=== PATIENT | male | born 1945 | race Caucasian/White ===

== ENCOUNTER 2016-05-15 10:08 | Emergency (ER) | payer MEDICARE, OTHER ==
[~2016-05-15] VITALS: Ht 170.2 cm; Wt 63.6 kg
[~2016-05-15 10:08] MED LIST: COSOPT EYE DROPS5 ML OP; NO HOME MEDICATIONS; PROSCAR 5MG5 MG PO; TRIAMTERENE/HCTZ; UNABLE; ZESTRIL 5MG5 MG PO; ZOLOFT 50MG50 MG PO
[2016-05-15 10:13] VITALS: TEMP 97.3
[2016-05-15] MEDS ORDERED: ZOCOR 40MG40 MG PO (10:19)
[2016-05-15] MEDS ORDERED: VITAMIN C500 MG PO (10:20)
[2016-05-15] MEDS ORDERED: ALPHAGAN P 15 M15 ML OU (10:20)
[2016-05-15] MEDS ORDERED: XALATAN EYE DROPS OU (10:20)
[2016-05-15] MEDS ORDERED: MASON NATURAL2000 IU PO (10:21)
[2016-05-15 11:14] LABS: BASO % 0.2 % (0.0-2.0); EOS # 0.2 (0.0-0.7); EOS % 2.4 % (0-4.0); GRAN # 4.7 (1.4-6.5); GRAN % 75.3 % (42.2-75.2); HEMOGLOBIN 12.6 g/dl (13.5-18.0); LYMPH # 1.1 (1.2-3.4); LYMPH % 16.7 % (20.0-51.0); MEAN CELL VOLUME 80 fl (80.0-100.0); MEAN CORPUSCULAR HEMOGLOBIN 28 pg (27.0-31.0); MEAN CORPUSCULAR HGB CONC 35 g/dl (33.0-37.0); MEAN PLATELET VOLUME 9.6 fl (7.4-10.4); MONO # 0.3 (0.1-0.6); MONO % 4.9 % (1.7-9.3); PLATELET COUNT 219 K/mm3 (130-400); RED BLOOD COUNT 4.54 M/mm3 (4.20-5.60); WHITE BLOOD COUNT 6.3 K/mm3 (4.8-10.8)
[2016-05-15 11:15] LABS: HEMATOCRIT 36.3 % (42.0-52.0)
[2016-05-15 11:32] LABS: ADJUSTED CALCIUM 9.3 mg/dL (8.4-10.2); ALANINE AMINOTRANSFERASE 32 U/L (21-72); ALKALINE PHOSPHATASE 59 U/L (50-136); ANION GAP 9 mmol/L (7-16); BLOOD UREA NITROGEN 16 mg/dL (9-20); CALCIUM 9.3 mg/dL (8.4-10.2); CARBON DIOXIDE 27 mmol/L (22-30); CHLORIDE 99 mmol/L (98-107); CREATININE, serum 1.06 mg/dL (0.66-1.25); GLUCOSE 110 mg/dL (74-106); POTASSIUM 4.5 mmol/L (3.4-5.0); SODIUM 136 mmol/L (137-145)
[2016-05-15 11:33] LABS: C-REACTIVE PROTEIN < 0.5 mg/dL (0.0-0.9)
[2016-05-15 12:27] VITALS: BP 108/67; PULSE 43
== END 2016-05-15 12:28 | disposition home or self-care (01) ==
LOC: COL.ER 10:08
PROVIDERS: Family Medicine
DX: E86.0 Dehydration (principal); I95.1 Orthostatic hypotension; I69.959 Hemiplegia and hemiparesis following unspecified cerebrovascular disease affecting unspecified side; I69.998 Other sequelae following unspecified cerebrovascular disease; H53.9 Unspecified visual disturbance
CPT/HCPCS: J7030

== ENCOUNTER 2020-11-25 11:33 | Day surgery (SDC) | payer MEDICARE, OTHER ==
[2020-11-25] VITALS (13 sets, daily range): BP systolic 103–196; BP diastolic 64–99; PULSE 46–94; TEMP 94.1–98.5
[~2020-11-25] VITALS: Ht 170.2 cm; Wt 83.1 kg
[~2020-11-25 11:33] MED LIST changes: +ALPHAGAN P 15 M15 ML OU; +MASON NATURAL2000 IU PO; +VITAMIN C500 MG PO; +XALATAN EYE DROPS OU; +ZOCOR 40MG40 MG PO
[2020-11-25] MEDS ORDERED: PRINIVIL10 MG PO (13:39)
[2020-11-25] MEDS ORDERED: FLOMAX 0.40.4 MG/CAP PO (13:40)
[2020-11-25] MEDS ORDERED: MELATONIN5 M1 PO ×2 (13:41)
[2020-11-25] MEDS ORDERED: OCUVITE1 TA1 PO (13:42)
[2020-11-25] MEDS ORDERED: PREVAGEN PO (13:42)
[2020-11-25] MEDS ORDERED: LACTAID3000 UNIT PO (13:44)
--- NOTE | 2020-11-25 16:43 | NUR ---
Pt. admitted to room 326. Pt. alert, oriented to self only. Pt. tearful when asked if he knows where he is because he reports he feels lost. Pt.'s temp is low at this time, see vital signs. K-pad placed on pt.'s body. Pt.'s son Sanjay at bedside.
--- NOTE | 2020-11-25 17:45 | NUR ---
Pt.'s temperature now WNL. Pt.'s urinary output is pink in color. Continuous bladder irrigation remains in place. Pt. was able to drink two cups of liquid broth and tolerated well. Pt. denies pain and reports he still feels numbness in his feet from the spinal anesthesia. Pt. is able to move his feet on the bed and can feel this flex o writer operator touching his ankles. New IVF hanging per order.
--- NOTE | 2020-11-25 20:00 | NUR ---
PATIENT IS ALERT TO SELF BUT CONFUSED ABOUT DAY AND PLACE. PATIENT IS SITTING UP IN BED. PATIENT HAS CBI WITH RED AND CLEAR OUTPUT. PATIENT HAS IV TO LEFT HAND. PATIENT IS LEGALLY BLIND. PATIENT HAS BP OF 196/96. LAKI CALLED AND MEDS GIVEN PER ORDERS. NO FURTHER NEEDS AT THIS TIME. CALL LIGHT WITHIN REACH. HEAD TO TOE ASSESSMENT COMPLETE.
--- NOTE | 2020-11-25 21:00 | NUR ---
PATIENT'S BLOOD PRESSURE IS BACK DOWN TO 164/91. THIS IS IN NORMAL RANGE FOR PATIENT. NO FURTHER NEEDS AT THIS TIME.
[2020-11-26 03:43] VITALS: BP 144/66; PULSE 83; TEMP 98.4
--- NOTE | 2020-11-26 06:24 | NUR ---
PATIENT DID WELL THROUGHOUT NIGHT. SLEPT ON AND OFF. PATIENT CBI OUTPUT IS PINKISH-REDDISH AND CLEAR. PATEITN DENIES PAIN OR FURTHER NEEDS AT THIS TIME. WILL REPORT TO DAY SHIFT.
[2020-11-26 07:31] VITALS: BP 144/87; PULSE 71; TEMP 97.6
--- NOTE | 2020-11-26 08:00 | NUR ---
PATIENT IS ORIENTED TO PERSON BUT IS FREQUENTLY FORGETFUL & CONFUSED. PATIENT HAS HX OF DEMENTIA, IS LEGALLY BLIND, AND LIVES AT HOME WITH SON. VSS. DENIES PAIN. AT BEDSIDE. P&P PER ORDERS. INFUSED 200CC OF CBI FLUID AND DC'D HASTINGS. URINAL AT BEDSIDE AND PATIENT GIVEN 6 CUP ROUTINE EDUCATION. NO C/O N/V. BREAKFAST TRAY AT BEDSIDE. AM MEDS GIVEN. LEFT HAND IV TO INT. HEAD TO TOE ASSESSMENT COMPLETE. CALL LIGHT IN REACH.
--- NOTE | 2020-11-26 11:30 | NUR ---
PATIENT'S FIRST VOID WAS ACCIDENTLY FLUSHED BY SON BUT WAS SEEN BY BOILER ROOM OPERATOR. WILL MONITOR.
[2020-11-26 12:44] VITALS: BP 137/68; PULSE 68; TEMP 97.6
--- NOTE | 2020-11-26 13:00 | NUR ---
SECOND VOID, PATIENT VOIDED IN URINAL BUT SPILLED APPROX 150CC OF RED TINGED URINE ON THE FLOOR. URINE OBSERVED BY STAFF. 6 CUP STILL IN PROCESS
--- NOTE | 2020-11-26 14:00 | NUR ---
PATIENT WAS ABLE TO VOID A THRID TIME AND WAS CAPTURED & PLACED IN 6 CUP. URINE IS DARK RED, NO CLOTS
[2020-11-26 15:25] VITALS: BP 153/73; PULSE 58; TEMP 97.9
--- NOTE | 2020-11-26 16:50 | NUR ---
PATIENT DISCHARGING HOME VIA WC TO PERSONAL VEHICLE WITH SON. OKAYED DISCHARGE, SEE ORDERS. GAVE DISCHARGE INSTRUCTIONS, SON CONFIRMS DISCHARGE MEDS WERE ALREADY SENT TO PHARMACY. ANSWERED QUESTIONS/CONCERNS. DC'D LEFT HAND IV, COVERED SITE WITH GAUZE & COBAN. PATIENT IS DRESSED, PACKED AND ESCORTED OUT.
== END 2020-11-26 16:50 | disposition home or self-care (01) ==
LOC: SDCO 11:33 → SURG 17:05 → SDCO 11-26 11:25 → SURG 11-26 11:25 → SDCO 11-26 16:50
DX: N40.1 Benign prostatic hyperplasia with lower urinary tract symptoms (principal); N42.31 Prostatic intraepithelial neoplasia; R39.12 Poor urinary stream; R35.1 Nocturia; R39.11 Hesitancy of micturition; N13.8 Other obstructive and reflux uropathy; I10 Essential (primary) hypertension; H40.9 Unspecified glaucoma; Z20.822 Contact with and (suspected) exposure to COVID-19; Z79.899 Other long term (current) drug therapy
CPT/HCPCS: OP; J0360; J0690; J1940; J2250; J2704; J3480; J7120

== ENCOUNTER 2021-03-13 07:22 | Emergency (ER) | payer MEDICARE, OTHER ==
[~2021-03-13] VITALS: Ht 167.6 cm; Wt 77.3 kg
[~2021-03-13 07:22] MED LIST changes: +FLOMAX 0.40.4 MG/CAP PO; +LACTAID3000 UNIT PO; +MELATONIN5 M1 PO; +OCUVITE1 TA1 PO; +PREVAGEN PO; +PRINIVIL10 MG PO
[2021-03-13 07:23] VITALS: TEMP 97.3
[2021-03-13 09:31] VITALS: BP 161/93; PULSE 65
[2021-03-14] MEDS ORDERED: ASPIRIN 81M81 MG/TA2 PO (14:24)
[2021-03-14] MEDS ORDERED: ARICEPT10 MG PO (14:25)
== END 2021-03-13 09:50 | disposition home or self-care (01) ==
LOC: COL.ER 07:22
DX: S70.01XA Contusion of right hip, initial encounter (principal); F03.90 Unspecified dementia, unspecified severity, without behavioral disturbance, psychotic disturbance, mood disturbance, and anxiety; W19.XXXA Unspecified fall, initial encounter; Y92.009 Unspecified place in unspecified non-institutional (private) residence as the place of occurrence of the external cause

== ENCOUNTER 2021-03-14 08:32 | Inpatient (IN) | payer MEDICARE, OTHER ==
[~2021-03-14] VITALS: Ht 170.2 cm; Wt 79.9 kg
[2021-03-14 08:58] LABS: HEMATOCRIT 44.1 % (42.0-52.0); HEMOGLOBIN 15.3 g/dl (13.5-18.0); MEAN CELL VOLUME 80 fl (80.0-100.0); MEAN CORPUSCULAR HEMOGLOBIN 28 pg (27-31); MEAN CORPUSCULAR HGB CONC 35 g/dl (33.0-37.0); MEAN PLATELET VOLUME 9.6 fl (7.4-10.4); PLATELET COUNT 219 K/mm3 (130-400); RED BLOOD COUNT 5.49 M/mm3 (4.20-5.60); REDCELL DISTRIBUTION WIDTH-CV 13.4 % (11.5-14.5)
[2021-03-14 09:24] LABS: ALANINE AMINOTRANSFERASE 34 U/L (0-55); ALBUMIN 3.8 gm/dL (3.4-4.8); ALKALINE PHOSPHATASE 77 U/L (40-150); ANION GAP 17 mmol/L (7-16); AST,SGOT 33 U/L (5-34); BILIRUBIN,TOTAL 1.2 mg/dL (0.2-1.2); BLOOD UREA NITROGEN 14 mg/dL (8-26); C-REACTIVE PROTEIN 6.43 mg/dL (0.00-0.50); CARBON DIOXIDE 15 mmol/L (23-31); CHLORIDE 109 mmol/L (98-107); CREATININE, serum 1.14 mg/dL (0.72-1.25); GLUCOSE 145 mg/dL (70-99); LIPASE < 10 U/L (8-78); POTASSIUM 4.1 mmol/L (3.5-4.5); SODIUM 141 mmol/L (136-145); TOTAL PROTEIN 7.3 gm/dL (6.2-8.1)
[2021-03-14 09:53] LABS: LYMPHOCYTE 6 % (20.0-51.0); NEUTROPHILS 93 % (42.0-75.2); PLATELET ESTIMATE NORMAL (NORMAL)
[2021-03-14 10:01] LABS: COLLECTION METHOD CLEAN CATCH
[2021-03-14 10:09] LABS: MUCOUS Present (NOT PRESENT); PH 5 (5-8); SQUAMOUS EPITHELIAL 0-2 /hpf (0-10); URINE APPEARANCE Hazy (CLEAR/HAZY); URINE BACTERIA Rare (NONE SEEN); URINE BILIRUBIN Negative (NEGATIVE); URINE BLOOD Negative (NEGATIVE); URINE COLOR Yellow (YELLOW); URINE GLUCOSE Negative (NEGATIVE); URINE KETONE Negative (NEGATIVE); URINE LEUKOCYTE ESTERASE Negative (NEGATIVE); URINE NITRATE Negative (NEGATIVE); URINE PROTEIN(semi-quant) 1+ (NEGATIVE); URINE RBC 0-2 /hpf (0-2); URINE UROBILINOGEN Negative (NEGATIVE)
[2021-03-14] MEDS ORDERED: ASPIRIN 81M81 MG/TA2 PO (14:24)
[2021-03-14] MEDS ORDERED: ARICEPT10 MG PO (14:25)
[2021-03-14 17:35] LABS: HEMATOCRIT 42.2 % (42.0-52.0); HEMOGLOBIN 14.9 g/dl (13.5-18.0)
[2021-03-14 17:47] LABS: INR 1.2 (0.8-3.0); PROTHROMBIN TIME 12.8 SECONDS (9.7-12.8)
--- NOTE | 2021-03-14 19:17 | NUR ---
RECEIVED CHANGE OF SHIFT REPORT FROM DAY SHIFT RN.
[2021-03-14 21:49] LABS: HEMATOCRIT 41.7 % (42.0-52.0); HEMOGLOBIN 14.2 g/dl (13.5-18.0)
[2021-03-14 22:16] VITALS: BP 151/79; PULSE 80; TEMP 98.7
[2021-03-15 00:11] VITALS: BP 134/84; PULSE 78; TEMP 98.1
[2021-03-15 04:15] VITALS: BP 132/79; BP 135/80; PULSE 76; TEMP 98
--- NOTE | 2021-03-15 06:10 | NUR ---
PATIENT CONTINUES TO BE INCONTINENT AT TIMES WHILE STATING HE HAS TO URINATE BUT ALREADY HAS VOIDED IN DEPENDS. SKIN IS INTACT TO PERIAREA. INT IN PLACE. REMAINS ON ROOM AIR. FOLLOWS COMMANDS AT TIMES WITH FURTHER CUES APPROPRIATE.
--- NOTE | 2021-03-15 06:30 | NUR ---
Report received from JARED Rios. Pt in bed resting, will continue to monitor.
--- NOTE | 2021-03-15 07:34 | NUR ---
CHANGE OF SHIFT REPORT GIVEN TO DAY SHIFT RN, MILAD.
[2021-03-15 07:38] LABS: HEMATOCRIT 40.1 % (42.0-52.0); HEMOGLOBIN 13.8 g/dl (13.5-18.0); MEAN CELL VOLUME 80 fl (80.0-100.0); MEAN CORPUSCULAR HEMOGLOBIN 28 pg (27-31); MEAN CORPUSCULAR HGB CONC 34 g/dl (33.0-37.0); MEAN PLATELET VOLUME 9.4 fl (7.4-10.4); PLATELET COUNT 203 K/mm3 (130-400); RED BLOOD COUNT 5.02 M/mm3 (4.20-5.60); REDCELL DISTRIBUTION WIDTH-CV 13.6 % (11.5-14.5)
[2021-03-15 07:40] VITALS: BP 146/77; PULSE 91; TEMP 98.5
[2021-03-15 07:48] LABS: CALCIUM 8.8 mg/dL (8.4-10.2); CREATININE, serum 0.86 mg/dL (0.72-1.25)
--- NOTE | 2021-03-15 09:25 | NUR ---
Assessment charted. Pt is alert but not fully oriented to place and date, agreeable, pleasant. Son at bedside. Alarm on, will continue otm onitor.
[2021-03-15] MEDS ORDERED: CIPRO 500MG TA500 MG PO (10:59)
[2021-03-15] MEDS ORDERED: FLAGYL500 MG PO (11:00)
[2021-03-15 11:43] VITALS: BP 117/61; PULSE 87; TEMP 98
--- NOTE | 2021-03-15 14:30 | NUR ---
First visit from the traffic representative. No needs right now.
--- NOTE | 2021-03-15 15:53 | NUR ---
Discharge teaching completed at this time, pt received discharge packet, f/u appointments, reviewed with son. INT dc'd, tip intact. pt left wtih all belongings, escortedo ut by medical staff, son to drive home, criteria met.
--- NOTE | 2021-03-15 16:46 | NUR ---
Electronic Plotting System Operator met with patient to discuss discharge planning. Patient answered questions, but did have some confusion during intake. Patient reports he lives in [place] with his , Isela and was not sure who his primary care provider is. Patient reports he is independent with ADLS. SW spoke with patient about Home Health services and he declined stating he does his own exercises like push ups at home. TAPAN contacted patient's son, Wai to review discharge planning. Wai states patient lives at home with him and he is there with patient all the time. Wai advised that patient's , Isela lives in an [facility] unit in [place] near other family. Wai is open to Home Health and selected [facility] from Medicare.gov list of agencies TAPAN reviewed with him. TAPAN contacted Demetria at [facility] and faxed referral/orders. Discharge Plan: Home with [facility]
== END 2021-03-15 15:59 | disposition home health service (06) | DRG 391 ==
LOC: COL.ER 08:32 → MEDICAL 12:02
PROVIDERS: Family Medicine; Nurse Practitioner Family
DX: A09 Infectious gastroenteritis and colitis, unspecified (principal); K57.31 Diverticulosis of large intestine without perforation or abscess with bleeding; E87.2 Acidosis; M48.56XA Collapsed vertebra, not elsewhere classified, lumbar region, initial encounter for fracture; G30.9 Alzheimer's disease, unspecified; F02.80 Dementia in other diseases classified elsewhere, unspecified severity, without behavioral disturbance, psychotic disturbance, mood disturbance, and anxiety
CPT/HCPCS: 99223-AI; 99239; J0696; J2405; J7120; Q9967

== ENCOUNTER 2023-07-27 16:58 | Inpatient (IN) | payer MEDICARE, OTHER ==
[~2023-07-27] VITALS: Ht 170.2 cm; Wt 66.5 kg
[~2023-07-27 16:58] MED LIST changes: +ALPHAG-P-0.1-15 OU; -ALPHAGAN P 15 M15 ML OU; +AMOXICILLIN 8751 TAB PO; +ARICEPT10 MG PO; +ASPIRIN 81M81 MG/TA2 PO; +BETADINE TOP; +CALMOSEPTINE OI71 GM TP; +CALMOSEPTINE1 OIN TP; +CIPRO 500MG TA500 MG PO; +DEPAKOTE 250MG250 MG PO; +DEPAKOTE ER 25250 MG PO; +FLAGYL500 MG PO; +KEPPRA1000 MG PO; -PRINIVIL10 MG PO; +PRINIVIL5 MG PO; +SEROQUEL 2525 MG/TAB PO; +TRIAMC 0.1 454 TOP; +TYLENOL 500MG500 MG PO
[2023-07-27 17:31] LABS: BASO % 0.3 % (0.0-2.0); EOS % 0.2 % (0.0-4.0); GRAN # 11.9 K/mm3 (1.4-6.5); GRAN % 81.2 % (42.2-75.2); HEMATOCRIT 43.7 % (42.0-52.0); HEMOGLOBIN 13.9 g/dl (13.5-18.0); LYMPH % 13.9 % (20.0-51.0); MEAN CELL VOLUME 83 fl (80.0-100.0); MEAN CORPUSCULAR HEMOGLOBIN 27 pg (27-31); MEAN CORPUSCULAR HGB CONC 32 g/dl (33.0-37.0); MEAN PLATELET VOLUME 9.4 fl (7.4-10.4); MONO # 0.6 K/mm3 (0.1-0.6); MONO % 3.9 % (1.7-9.3); PLATELET COUNT 472 K/mm3 (130-400); RED BLOOD COUNT 5.24 M/mm3 (4.20-5.60); REDCELL DISTRIBUTION WIDTH-CV 15.8 % (11.5-14.5)
[2023-07-27 17:33] LABS: INR 1.2 (0.8-3.0); PROTHROMBIN TIME 13.2 SECONDS (9.7-12.8)
[2023-07-27 17:42] LABS: ALANINE AMINOTRANSFERASE 19 U/L (0-55); ALBUMIN 3.3 g/dL (3.4-4.8); ALKALINE PHOSPHATASE 148 U/L (40-150); ANION GAP 16 mmol/L (7-16); AST,SGOT 26 U/L (5-34); BILIRUBIN,TOTAL 0.6 mg/dL (0.2-1.2); BLOOD UREA NITROGEN 14 mg/dL (8-26); CALCIUM 9.9 mg/dL (8.4-10.2); CHLORIDE 109 mEq/L (98-107); CREATININE, serum 1.03 mg/dL (0.72-1.25); GLUCOSE 104 mg/dL (70-99); SODIUM 146 mEq/L (136-145); TOTAL PROTEIN 7.9 g/dl (6.2-8.1)
[2023-07-27 17:50] LABS: TROPONIN-I < 0.010 ng/mL (0.00-0.033)
[2023-07-27] MEDS ORDERED: Iohexol 300 - 100 ML VIAL IV ONE (18:13)
[2023-07-27] MEDS ORDERED: NS 50 ML IV ONE (18:14)
[2023-07-27 18:54] LABS: COLLECTION METHOD CATHETER
[2023-07-27 19:02] LABS: PH 5.5 (5.0-8.5); URINE APPEARANCE CLEAR (CLEAR/HAZY); URINE BLOOD 1+ (NEGATIVE); URINE COLOR YELLOW (YELLOW); URINE GLUCOSE NEGATIVE (NEGATIVE); URINE KETONE 2+ (NEGATIVE); URINE NITRATE NEGATIVE (NEGATIVE); URINE PROTEIN(semi-quant) NEGATIVE (NEGATIVE)
[2023-07-27] MEDS ORDERED: SEROQUEL 2525 MG/TAB PO (19:12)
[2023-07-27 20:13] LABS: ARTERIAL BLD GAS O2 SATURATION 93.9 % (92-100); ARTERIAL BLD GAS TCO2 CT 21.7; ARTERIAL BLOOD GAS BASE EXCESS -2.5 (-2-2); ARTERIAL BLOOD GAS HCO3 20.7 meq/L (22-26); ARTERIAL BLOOD GAS PCO2 31.5 mmHg (35-45); ARTERIAL BLOOD GAS PO2 67.1 mmHg (80-100); ARTERIAL BLOOD GAS pH 7.44 (7.35-7.45)
[2023-07-27] MEDS ORDERED: LR 1,000 ML IV SCH ×2 (20:15)
[2023-07-27] MEDS ORDERED: dexAMETHasone 10 MG/ML VIAL IV SCH (21:45)
[2023-07-27] MEDS ORDERED: Albuterol/Ipratropium 3 MG-0.5 MG/3 ML Neb Soln IH PRN (22:00)
[2023-07-27] MEDS ORDERED: levETIRAcetam 100 ML IV SCH (22:15)
[2023-07-27 23:10] VITALS: BP 137/91; PULSE 124; TEMP 99.6
[2023-07-28] VITALS (492 sets, daily range): BP systolic 82–125; BP diastolic 51–94; PULSE 68–141; TEMP 98–99.3; O2SAT 86–100
[2023-07-28] MEDS ORDERED: Albuterol/Ipratropium 3 MG-0.5 MG/3 ML Neb Soln IH SCH (02:00)
[2023-07-28 02:18] LABS: CALCIUM 9.4 mg/dL (8.4-10.2); CREATININE, serum 0.96 mg/dL (0.72-1.25); POTASSIUM 4.1 mEq/L (3.5-4.5)
[2023-07-28 05:53] LABS: HEMATOCRIT 38.8 % (42.0-52.0); HEMOGLOBIN 13.1 g/dl (13.5-18.0); MEAN CELL VOLUME 80 fl (80.0-100.0); MEAN CORPUSCULAR HEMOGLOBIN 27 pg (27-31); MEAN CORPUSCULAR HGB CONC 34 g/dl (33.0-37.0); MEAN PLATELET VOLUME 9.6 fl (7.4-10.4); PLATELET COUNT 405 K/mm3 (130-400); RED BLOOD COUNT 4.86 M/mm3 (4.20-5.60); REDCELL DISTRIBUTION WIDTH-CV 15.8 % (11.5-14.5)
[2023-07-28 06:09] LABS: CALCIUM 9.4 mg/dL (8.4-10.2); CREATININE, serum 1.15 mg/dL (0.72-1.25); POTASSIUM 4.3 mEq/L (3.5-4.5)
[2023-07-28 06:53] LABS: BAND 44 % (0-10); LYMPHOCYTE 3 % (20.0-51.0); NEUTROPHILS 49 % (42.0-75.2)
[2023-07-28 06:54] LABS: ANISOCYTOSIS 1+; PLATELET ESTIMATE INCREASED (NORMAL)
--- NOTE | 2023-07-28 07:21 | NUR ---
RECEIVED REPORT FROM NIGHTSHIFT ELZBIETA COLEMAN. PATIENT RESTING IN BED WIHT EYES CLOSED AT THIS TIME. PATIENT REMAINS ON BIPAP. BED IN A LOW POSITION, WITH ALARM ON. CALL LIGHT WITHIN REACH.
[2023-07-28 08:20] LABS: HEMATOCRIT 38.1 % (42.0-52.0); HEMOGLOBIN 12.4 g/dl (13.5-18.0); MEAN CELL VOLUME 83 fl (80.0-100.0); MEAN CORPUSCULAR HEMOGLOBIN 27 pg (27-31); MEAN CORPUSCULAR HGB CONC 33 g/dl (33.0-37.0); MEAN PLATELET VOLUME 9.7 fl (7.4-10.4); PLATELET COUNT 377 K/mm3 (130-400); REDCELL DISTRIBUTION WIDTH-CV 15.9 % (11.5-14.5)
--- NOTE | 2023-07-28 08:47 | NUR ---
HEAD TO TOE ASSESSMENT COMPLETED. PATIENT ALERTS TO VOICE. PATIENT DOES NOT FOLLOW COMMANDS AND DOES NOT REPLY WHEN SPOKEN TO. PUPILS EQUAL AND REACTIVE. HEART SOUNDS REGULAR WITH S1 AND S2 NOTED. LUNG SOUNDS DIMINISHED BILATERALLY. PATIENT REMAINS ON BIPAP AT THIS TIME. PATIENT'S BREATHING APPEARS SHALLOW AND TACHYPNIC. PATIENT IS INCONTINENT OF BLADDER. INCONTINENT CARE PROVIDED. PATIENT'S PULSES EQUAL BILATERALLY IN UPPER AND LOWER EXTREMITIES. NO SKIN ISSUES NOTED AT THIS TIME. MEDICATIONS ADMINISTERED PER EMAR. BED IN A LOW POSITION, ALARM ON. CALL LIGHT WITHIN REACH.
[2023-07-28] MEDS ORDERED: Brimonidine 0.2% Ophth Soln 5 ML BOTTLE OP SCH (09:00)
[2023-07-28] MEDS ORDERED: QUEtiapine 25 MG TAB PO SCH (09:00)
[2023-07-28] MEDS ORDERED: ZINC OXIDE TP SCH (09:00)
[2023-07-28] MEDS ORDERED: Latanoprost 0.005% Ophth Soln 2.5 ML BOTTLE OP SCH (09:00)
[2023-07-28] MEDS ORDERED: Pantoprazole 40 MG in NS 10 ML IV SCH (09:00)
[2023-07-28] MEDS ORDERED: Divalproex 250 MG Delayed Release TAB PO SCH (09:00)
[2023-07-28] MEDS ORDERED: MENTHOL TP SCH (09:00)
--- NOTE | 2023-07-28 09:24 | NUR ---
Initial visit; Augustin adams, family member at bedside. Brake Machine Operator spoke with family member letting him know she is available to pray with patient and family at their request and wished patient well and will keep him in her prayers.
[2023-07-28 09:25] LABS: BAND 23 % (0-10)
[2023-07-28 09:26] LABS: LYMPHOCYTE 6 % (20.0-51.0); METAMYELOCYTE 3 % (0-0); NEUTROPHILS 65 % (42.0-75.2)
[2023-07-28 09:28] LABS: PLATELET ESTIMATE NORMAL (NORMAL)
[2023-07-28] MEDS ORDERED: Vancomycin 1.5 GM,Special Dose/Pharmacy Prepared 1.5 GM in NS 250 ML IV SCH (10:15)
[2023-07-28] MEDS ORDERED: LR 1,000 ML IV ONE ×2 (10:15→20:45)
[2023-07-28] MEDS ORDERED: Vancomycin 1.25 GM,Special Dose/Pharmacy Prepared 1.25 GM in NS 250 ML IV ONE (10:30)
[2023-07-28] MEDS ORDERED: KEPPRA1000 MG PO (11:35)
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
--- NOTE | 2023-07-28 14:05 | NUR ---
Son, Sanjay, brought in patient's living will and social sciences professor placed it in the medical record.
--- NOTE | 2023-07-28 19:44 | NUR ---
REPORT GIVEN TO NIGHTSHIFT RNLOUISE. PATIENT REMAINS ON BIPAP AT THIS TIME. VSS. PATIENT RESTING IN BED WITH EYES CLOSED. BED IN A LOW POSITION, ALARM ON. CALL LIGHT WITHIN REACH.
--- NOTE | 2023-07-28 20:15 | NUR ---
JUS COMPLETE ASSESMENT PATIENT DEVELOPS RAPID ONSET AFIB, ALSO JUST GETTING BREATHING TX, BREATHING TX TURNED OFF PATIENT PLACED IN POSITION OF COMFORT CALLED PROVIDER FOR ASSISTANCE, AT 2018 12 LEAD EKG COMPLETE, 2019 PROVIDER ARRIVES, PATIENT HAVING SMALL RUNS OF VTACH AND AFIB RAPID AT HIGH 200/MIN, B/PS SOFT/ AT 2022 6 MG ADENOSINE WITH RAPID 20 CC FLUSH IN BR PORT RIJ/ HEART RATE AND THEN RESUMES RAPID RATE/ 2025 6 MG ADENOSINE ADMINISTERED IV RIJ BR PORT WITH RAPID 20 CC PUSH/HEART RATE SLOWS THE RAPID AGAIN 2027 12 MG ADENOSINE ADMINISTER RAPID IV RIJ BR PORT 20CC RAPID FLUSH HEART RATE SLOWS AND REGAINS 2030 SYNCHRONISED CARDIOVERSION SHOCK AT 125 J, HEART RATE SLOWS/ AT 2029 AMIODARONE ADMINISTERED BOLUS/ RIJ W PORT/AT 2036 AMIODARONE DRIP AT 1 MG/MIN 33 ML/HR B PORT RIJ/ 2032 LR FLUID BOLUS 500 CC BEGINS/ NOREPI PLACED STANDBY AT BED SIDE VITALS WITHIN NORMAL LIMITS WILL CONTINUE TO OBSERVE
[2023-07-28] MEDS ORDERED: Adenosine 6 MG/2 ML VIAL IV ONE ×3 (20:30)
[2023-07-28] MEDS ORDERED: Midazolam 2 MG/2 ML VIAL IV ONE (20:45)
[2023-07-28 20:46] LABS: HEMOGLOBIN 10.7 g/dl (13.5-18.0); MEAN CELL VOLUME 82 fl (80.0-100.0); MEAN CORPUSCULAR HEMOGLOBIN 27 pg (27-31); MEAN CORPUSCULAR HGB CONC 33 g/dl (33.0-37.0); MEAN PLATELET VOLUME 9.6 fl (7.4-10.4); PLATELET COUNT 327 K/mm3 (130-400); RED BLOOD COUNT 3.99 M/mm3 (4.20-5.60); REDCELL DISTRIBUTION WIDTH-CV 15.7 % (11.5-14.5)
[2023-07-28 20:55] LABS: HEMATOCRIT 32.5 % (42.0-52.0)
[2023-07-28 21:01] LABS: CALCIUM 9.2 mg/dL (8.4-10.2); CREATININE, serum 0.86 mg/dL (0.72-1.25); MAGNESIUM 1.7 mg/dL (1.6-2.6); POTASSIUM 3.8 mEq/L (3.5-4.5)
[2023-07-28] MEDS ORDERED: *Potassium Replacement Protocol MC SCH (21:15)
[2023-07-28] MEDS ORDERED: Potassium Chloride 100 ML IV ONE (21:15)
[2023-07-28] MEDS ORDERED: Amiodarone 450 MG in D5W Excel 250 ML IV SCH (21:30)
[2023-07-28] MEDS ORDERED: Heparin/D5W 250 ML IV SCH (21:45)
[2023-07-28] MEDS ORDERED: Heparin 5,000 UNITS/ML 1 ML VIAL IV PRN (21:45)
[2023-07-28 22:29] LABS: PARTIAL THROMBOPLASTIN TIME 31.3 SECONDS (26.0-37.0)
[2023-07-28 22:29] LABS: BAND 24 % (0-10); LYMPHOCYTE 8 % (20.0-51.0); NEUTROPHILS 67 % (42.0-75.2); PLATELET ESTIMATE NORMAL (NORMAL)
[2023-07-29] VITALS (678 sets, daily range): BP systolic 69–130; BP diastolic 39–75; PULSE 50–134; TEMP 97.4–98.9; O2SAT 58–100
[2023-07-29] MEDS ORDERED: Amiodarone 450 MG in D5W Excel 250 ML IV SCH (03:35)
[2023-07-29 05:08] LABS: BASO # 0.1 K/mm3 (0.0-0.2); BASO % 0.2 % (0.0-2.0); GRAN % 89.9 % (42.2-75.2); LYMPH % 4.6 % (20.0-51.0); MEAN CELL VOLUME 81 fl (80.0-100.0); MEAN CORPUSCULAR HGB CONC 34 g/dl (33.0-37.0); MEAN PLATELET VOLUME 10.6 fl (7.4-10.4); MONO # 0.9 K/mm3 (0.1-0.6); MONO % 4.2 % (1.7-9.3); PLATELET COUNT 270 K/mm3 (130-400); RED BLOOD COUNT 3.41 M/mm3 (4.20-5.60); REDCELL DISTRIBUTION WIDTH-CV 15.8 % (11.5-14.5)
[2023-07-29 05:14] LABS: HEMATOCRIT 27.5 % (42.0-52.0); HEMOGLOBIN 9.3 g/dl (13.5-18.0); MEAN CORPUSCULAR HEMOGLOBIN 27 pg (27-31)
[2023-07-29 05:39] LABS: CALCIUM 8.5 mg/dL (8.4-10.2); CREATININE, serum 0.83 mg/dL (0.72-1.25); POTASSIUM 3.9 mEq/L (3.5-4.5)
--- NOTE | 2023-07-29 07:00 | NUR ---
Report received from JARED Beth. Reviewed overnight events. Pt is currently SB in the 50s. Pt on 2L NC. Pt resting with eyes closed. Call light within reach. Will conitnue with POC.
--- NOTE | 2023-07-29 07:40 | NUR ---
Pt blood pressure has dropped into the 60s. Notified Dr. Lunsford, orders for a bolus of LR and Levophed ordered in case needed.
[2023-07-29] MEDS ORDERED: LR 1,000 ML IV SCH (07:45)
[2023-07-29] MEDS ORDERED: Potassium Chloride 100 ML IV ONE (08:00)
[2023-07-29] MEDS ORDERED: *Potassium Replacement Protocol MC SCH (08:00)
--- NOTE | 2023-07-29 09:00 | NUR ---
Verbal order from Dr. Lunsford to insert booth. 16 occitan booth placed with 10cc water in balloon. Pt tolerated procedure well.
--- NOTE | 2023-07-29 10:15 | NUR ---
Pt pulled out RIJ on accident. Notified Dr. Lunsford who stated he would place a subclavian. Telephone consent obtained by this RN and Brittany COLEMAN from Pt daughter Dana. Time out completed at 0940. Left Subclavian placed and CXR ordered.
--- NOTE | 2023-07-29 11:29 | NUR ---
Data: Payable Representative visit attempted during Payable Representative rounds. RN was with Patient. Assessment: None Plan of Care: Chaplains will remain available as needed/requested while Patient is admitted to this hospital.
[2023-07-29] MEDS ORDERED: Amiodarone 200 MG TAB PO SCH (11:48)
--- NOTE | 2023-07-29 14:24 | NUR ---
Restarted heparin at 1100 units, 4 hours after placing LSC central line per Dr. Kay orders. Next HepXa at 2000, order placed.
[2023-07-30] VITALS (242 sets, daily range): BP systolic 101–124; BP diastolic 54–69; PULSE 55–79; TEMP 96.9–97.9; O2SAT 82–100
[2023-07-30 04:56] LABS: BASO % 0.1 % (0.0-2.0); GRAN # 14.8 K/mm3 (1.4-6.5); GRAN % 86.3 % (42.2-75.2); LYMPH # 1.4 K/mm3 (1.2-3.4); LYMPH % 7.9 % (20.0-51.0); MEAN CELL VOLUME 81 fl (80.0-100.0); MEAN CORPUSCULAR HGB CONC 34 g/dl (33.0-37.0); MEAN PLATELET VOLUME 10.2 fl (7.4-10.4); MONO # 0.8 K/mm3 (0.1-0.6); MONO % 4.4 % (1.7-9.3); PLATELET COUNT 232 K/mm3 (130-400); REDCELL DISTRIBUTION WIDTH-CV 15.9 % (11.5-14.5)
[2023-07-30 05:42] LABS: HEMATOCRIT 24.4 % (42.0-52.0); HEMOGLOBIN 8.2 g/dl (13.5-18.0); MEAN CORPUSCULAR HEMOGLOBIN 27 pg (27-31)
--- NOTE | 2023-07-30 07:00 | NUR ---
Report received from JARED Jacques. Reviewed overnight events. Labs are still pending this morning. Upon entering the room pt is pulling on booth. Pt redirected and educated what booth is for. Urine is red. IVF infusing per orders. Call light within reach. Bed alarm activated. Will continue with POC.
--- NOTE | 2023-07-30 08:00 | NUR ---
Pt is having some hallucinations in room. Stating he is seeing other people. Believes his son is in the room with him. Attempts made to redirect patient that it is only him and I in the room at this time.
[2023-07-30 08:51] LABS: CREATININE, serum 0.72 mg/dL (0.72-1.25)
[2023-07-30 08:52] LABS: CALCIUM 8.2 mg/dL (8.4-10.2); POTASSIUM 3.3 mEq/L (3.5-4.5)
[2023-07-30] MEDS ORDERED: Potassium Chloride 100 ML IV SCH (09:45)
[2023-07-30] MEDS ORDERED: levETIRAcetam 1,000 MG in Syringe 1 EACH IV SCH (10:07)
--- NOTE | 2023-07-30 13:53 | NUR ---
Report called to JARED Osei. Reviewed IV fluids infusing. Reviewed labs. All questions answered. Pt will transfer up via bed.
--- NOTE | 2023-07-30 14:39 | NUR ---
PT UP TO THE FLOOR AT THIS TIME. PT RESTING WITH EYES CLOSED, FAMILY AT BEDSIDE, VITALS STABLE ON ROOM AIR, HASTINGS TO DEPENDENT DRAINAGE, SON AT BEDSIDE. DRESSING TO LEFT SUBCLAVIAN CLEAN AND DRY, PT REMAINS NPO. WILL CONTINUE TO MONITOR.
[2023-07-30] MEDS ORDERED: Pantoprazole 40 MG in NS 10 ML IV SCH (21:00)
--- NOTE | 2023-07-30 21:30 | NUR ---
Received report from JARED Pastor at 3220. Pt is resting in bed with IVF running. Pt has call light within reach and bed alarms on. Pt has a booth in place with no kinks in tubing. Will continue with pt care.
[2023-07-30] MEDS ORDERED: levETIRAcetam 500 MG/100 ML IVPB IV SCH (22:00)
[2023-07-31] VITALS (11 sets, daily range): BP systolic 123–158; BP diastolic 61–81; PULSE 64–80; TEMP 97.6–98.4
--- NOTE | 2023-07-31 06:27 | NUR ---
Pt had an uneventful night. Pt pulled central line dressing off, this nurse placed a new dressing on per protocol with sterile gloves. Pt has booth in place with no kinks in tubing. Pt has IVF and ABX running at this time. Will give report to day shift nurse.
[2023-07-31 06:33] LABS: MEAN CELL VOLUME 80 fl (80.0-100.0); MEAN CORPUSCULAR HGB CONC 34 g/dl (33.0-37.0); MEAN PLATELET VOLUME 10.3 fl (7.4-10.4); PLATELET COUNT 225 K/mm3 (130-400); RED BLOOD COUNT 3.26 M/mm3 (4.20-5.60); REDCELL DISTRIBUTION WIDTH-CV 15.5 % (11.5-14.5); RETIC # 0.06 M/mm3 (0.02-0.16); RETIC % 1.7 % (0.5-3.52)
[2023-07-31 06:37] LABS: HEMOGLOBIN 8.8 g/dl (13.5-18.0); MEAN CORPUSCULAR HEMOGLOBIN 27 pg (27-31)
[2023-07-31 07:33] LABS: BAND 14 % (0-10); LYMPHOCYTE 8 % (20.0-51.0); NEUTROPHILS 77 % (42.0-75.2); PLATELET ESTIMATE NORMAL (NORMAL)
[2023-07-31] MEDS ORDERED: Potassium Chloride 100 ML IV SCH ×2 (08:00→14:15)
--- NOTE | 2023-07-31 09:00 | NUR ---
Pt on seizure precautions. Waiting for padding for new beds, old pads do not fit side rails. Have blankets packed between Pt and bed rails. No further needs at this time, call light in reach and bed alarm on.
--- NOTE | 2023-07-31 09:06 | NUR ---
Pt laying in bed. VSS. A&O to self, unable to reoirient. S1S2 on tele. Lungs are rhonchitic in all lobes. ABD is rounded, soft, non-tender with audible bowel sounds in all quadrants. Palpable pulses in all extremities. Central line in Left Subclavian is patent with positive blood draw on all three ports. IV fluids in white port at 100 cc/hr. Sacrum has two abrasions/blisters open. Placed cream on area. Left heel has open ulcer. Placed heel mepilex pad and elevated heels off bed with pillow. Pt denies n/v, pain, headache, dizziness. PCT helped turn Pt onto Left side and cath care complete.
[2023-07-31] MEDS ORDERED: SODIUM CHLORIDE IV SCH (11:00)
[2023-07-31] MEDS ORDERED: VALPROATE IV SCH (11:00)
--- NOTE | 2023-07-31 11:13 | NUR ---
Pt wishing to speak with provider to see what plan is. Pt states he wishes to go home. Told Pt the provider would be by to see him.
--- NOTE | 2023-07-31 15:10 | NUR ---
spring floor service worker was notified patient has [facility]. SW faxed clinical updates to [facility]. TAPAN faxed clinical updates to [facility]. Discharge plan: Return to [facility] with [facility]
--- NOTE | 2023-07-31 18:24 | NUR ---
Pt laying in bed. Lips are chapped and have brown, hard skin stuck on upper and lower lips. Cleaned area with gauze and provided wet sponge to moisten mucus membranes. Emptied Bautista. No further needs at this time. Call light in reach and bed alarm on.
--- NOTE | 2023-07-31 19:22 | NUR ---
report received from tamra richardson. pt resting in bed, equal and unlabored breaths noted. no outward signs of pain noted. fall precautions in place. call light in reach. all needs met at this time.
--- NOTE | 2023-07-31 22:10 | NUR ---
shift assessment complete, see documentation. pt tolerated hs meds well. iv abx and medications running to left subclavian without issue. fall precautions in place. call light in reach. all needs met at this time.
[2023-08-01] VITALS (9 sets, daily range): BP systolic 130–165; BP diastolic 79–89; PULSE 75–91; TEMP 97.6–99.6
[2023-08-01 06:55] LABS: MEAN CELL VOLUME 80 fl (80.0-100.0); MEAN CORPUSCULAR HGB CONC 34 g/dl (33.0-37.0); MEAN PLATELET VOLUME 10.4 fl (7.4-10.4); PLATELET COUNT 230 K/mm3 (130-400); RED BLOOD COUNT 3.47 M/mm3 (4.20-5.60); REDCELL DISTRIBUTION WIDTH-CV 15.4 % (11.5-14.5)
[2023-08-01 06:56] LABS: HEMATOCRIT 27.9 % (42.0-52.0); HEMOGLOBIN 9.4 g/dl (13.5-18.0); MEAN CORPUSCULAR HEMOGLOBIN 27 pg (27-31)
[2023-08-01] MEDS ORDERED: Potassium Chloride 100 ML IV SCH (08:00)
[2023-08-01] MEDS ORDERED: levETIRAcetam 500 MG TAB PO SCH (09:00)
--- NOTE | 2023-08-01 09:41 | NUR ---
PT RESTING IN BED WITH EYES CLOSED, PT REPORTS NO PAIN, SON AT BEDSIDE. PO PILLS CRUCHED AND TAKEN WITH APPLESAUCE, PT WITH WET COUGH. CENTRAL LINE DRESSING CLEAN AND DRY, HASTINGS TO DEPENDENT DRAINAGE. DISCUSSED COMFORT CARE DISCUSSION WITH DR PASCAL TO HAVE WITH PT SON. WILL CONTINUE TO MONITOR.
--- NOTE | 2023-08-01 14:35 | NUR ---
switchboard wire worker helper was notified patient's son discussed hospice services with Dr. Mckay. Dr. Mckay reports the son would like hospice services for patient. TAPAN notes patient has three DPOA-HC all are his children. SW contacted [facility] and expressed the doctor had spoke with the patient's son and he expressed they would like hospice but would be discussing options with them. SW was notified they work with a few different hospice agencies but whichever hospice agency the family would like they would work with. SW met with patient's son, Sanjay Blank, and asked if patient's other children, Kianna and Dana were all wanting hospice for this patient as patient is not responsive. Sanjay Blank stated he believed so because they chose [facility] assisted living because they were able to do hospice there and they had gone through similiar medical concerns with their mother. SW asked Sanjay if he could contact his sisters to ensure they were on the same page for hospice services. Sanjay Blank was able to reach Dana, whom expressed the siblings were in agreement with hospice services because when their mother was going through her medical concerns, patient had expressed he did not want to be intubated or have any feeding tubes, so hospice services was what they would like to follow patient's wishes. TAPAN provided the Medicare.gov list of options to Sanjay Blank. TAPAN explained she would send a referral to whichever hospice agency they preferred. TAPAN explained she would follow up with Sanjay Blank tomorrow to send the referral. TAPAN notified [facility] patient and family are looking at hospice services versus returning to [place] with HH. [facility] explained they would transfer patient to discharge to hospice services. SW will follow up with family to get hospice choice. Discharge plan: [facility] with Hospice
[2023-08-01] MEDS ORDERED: LORazepam 2 MG/ML 1 ML VIAL IV PRN (16:15)
[2023-08-01] MEDS ORDERED: Glycopyrrolate 0.2 MG/ML 1 ML VIAL IV PRN (16:15)
[2023-08-01] MEDS ORDERED: Scopolamine 1 MG Delivered 3-Day PATCH TD SCH (16:15)
[2023-08-01] MEDS ORDERED: Morphine 4 MG/ML VIAL IV PRN (16:15)
--- NOTE | 2023-08-01 20:00 | NUR ---
PT RESTING IN BED WITH UNLABORED RESP. PT AWAKENS WITH REPOSITIONING. PT STATES "NO" WHEN ASKED IF HAVING ANY PAIN. NO PHYSICAL QUES OF PAIN NOTED. HASTINGS TO DD WITH YELLOW OUTPUT. LEFT SUBCLAVIAN PATENT & DRSG INTACT. CALL LIGHT IN REACH & BED ALARM ON
--- NOTE | 2023-08-02 02:59 | NUR ---
Q2 HOUR REPOSITIONING PROVIDED. PT CONTINUES TO STATE NO WHEN ASKED IF HAVING ANY PAIN.
--- NOTE | 2023-08-02 06:28 | NUR ---
PT ALERT THIS MORNING. CONTINUES TO DENY PAIN. CALL LIGHT IN REACH & BED ALARM ON
--- NOTE | 2023-08-03 16:07 | NUR ---
On 08/02/23 at 9 am, social and political studies professor met with patient's son, Sanjay Blank, to obtain choice for hospice. Family had not chosen yet. SW contacted [facility] and explained the technical issues and they would not be able to fax or email updates to them or send a referral to hospice. [facility] explained they would be willing to assist with sending information to whichever hospice agency family chooses. SW will follow up with family. At 10:26 am, social and political studies professor received a call from [facility] to follow up on family's choice of hospice. SW explained they had not made a choice at this point but she was going to follow up at 11 am. At 11:06 am, social and political studies professor met with patient's son, Sanjay Blank, whom explained they chose [facility]. At 11:10 am, social and political studies professor notified patient's nurse of choice. SW contacted [facility] and explained the technical issues. They reported they could come product picker the information from the hospital to review and determine if he is hospice appropriate. TAPAN gathered information available on patient and provided packet to nursing station for hospice to product picker. SW notified [facility] of hospice choice and that once they have hospice acceptance they would set up EMS transfer for patient to return to [facility] for hospice services. At 1:04 pm, [facility] confirmed they are able to accept patient today. TAPAN confirmed with [facility] that patient could return to them today and scheduled EMS for 3 pm through [facility]. TAPAN notified [facility], patient's nurse, patient's family and [facility] transfer time for 3 pm. TAPAN placed discharge orders in [facility] packets. SW explained to nurse to have EMS take both packets to ensure [facility] and [facility] get a packet. TAPAN provided report number to patient's nurse. At 3:25 pm, social and political studies professor was contacted by patient's nurse regarding patient left with a subclavian central line and wanted to know if hospice could remove this as the [facility] was inquiring. TAPAN contacted [facility] whom initially reported they are unable to do so, but late contacted the social and political studies professor and explained they were thinking of another line but they would be able to remove the subclavian line. SW notified patient's nurse that [facility] expressed they would remove this line.
== END 2023-08-02 13:00 | disposition home or self-care (01) | DRG 871 ==
LOC: COL.ER 16:58 → ICU 19:30 → MEDICAL 19:30 → ICU 07-29 12:58 → SURG 07-30 14:20
PROVIDERS: Internal Medicine; Nurse Practitioner Family; Nurse Practitioner Primary Care; ADMIT Internal Medicine
PROC: 5A09357 Assistance with Respiratory Ventilation, Less than 24 Consecutive Hours, Continuous Positive Airway Pressure (ICD-10-PCS; 2023-07-27)
PROC: 05H633Z Insertion of Infusion Device into Left Subclavian Vein, Percutaneous Approach (ICD-10-PCS; principal; 2023-07-29)
DX: A41.9 Sepsis, unspecified organism (principal); J96.01 Acute respiratory failure with hypoxia; E87.20 Acidosis, unspecified; E87.0 Hyperosmolality and hypernatremia; L03.221 Cellulitis of neck; M48.54XA Collapsed vertebra, not elsewhere classified, thoracic region, initial encounter for fracture; K11.20 Sialoadenitis, unspecified; I48.91 Unspecified atrial fibrillation; Z66 Do not resuscitate; I08.1 Rheumatic disorders of both mitral and tricuspid valves; I10 Essential (primary) hypertension; R65.20 Severe sepsis without septic shock; F03.90 Unspecified dementia, unspecified severity, without behavioral disturbance, psychotic disturbance, mood disturbance, and anxiety; R22.1 Localized swelling, mass and lump, neck; R00.1 Bradycardia, unspecified; D64.9 Anemia, unspecified; E87.8 Other disorders of electrolyte and fluid balance, not elsewhere classified; N40.0 Benign prostatic hyperplasia without lower urinary tract symptoms; G40.909 Epilepsy, unspecified, not intractable, without status epilepticus; H35.30 Unspecified macular degeneration; R32 Unspecified urinary incontinence; R29.6 Repeated falls; Z79.82 Long term (current) use of aspirin; Z87.820 Personal history of traumatic brain injury
CPT/HCPCS: A4314; C1751; C9113; J0153; J0282; J1100; J1644; J1953; J2250; J2543; J3370; J3475; J3480; J7050; J7060; J7120; Q9967